=== PATIENT | female | born 1995 | race Caucasian/White ===

== ENCOUNTER 2018-10-05 19:35 | Inpatient (IN) | payer OTHER ==
[2018-10-05] MEDS ORDERED: BUTORPHANOL TARTRATE 2 MG/ML VIAL IVPUSH PRN (20:05)
--- NOTE | 2018-10-05 20:05 | HP ---
Past Medical History - Admission Chief Complaint: Labor pain History of Present Illness: 23 yo , @ 39 weeks gestation, EDC 10/11/18 sent from office for augmentation of labor. In office she was 4cm dilated. She c/o back pain and lower abdominal pain. History Source: Patient Limitations to Obtaining History: No Limitations - Past Medical History ...: 1 ...Para: 0 ...EDC by Dates: 10/11/18 - Past Surgical History Past Surgical History: Yes: None Hx Myomectomy: No Hx Transabdominal Cerclage: No - Alcohol/Substance Use Hx Alcohol Use: No History of Substance Use: reports: None Home Medications - Allergies Allergies/Adverse Reactions: Allergies Allergy/AdvReac Type Severity Reaction Status Date / Time No Known Drug Allergies Allergy Verified 09/18/18 14:38 - Home Medications Home Medications: Ambulatory Orders 19 Tablet 1 tab PO DAILY 09/18/18 Family Disease History - Family Disease History Family History: Unremarkable Review of Systems - Review of Systems Constitutional: reports: No Symptoms Eyes: reports: No Symptoms HENT: reports: No Symptoms Neck: reports: No Symptoms Cardiovascular: reports: No Symptoms Respiratory: reports: No Symptoms Gastrointestinal: reports: No Symptoms Genitourinary: reports: Pain Breasts: reports: No Symptoms Reported Musculoskeletal: reports: No Symptoms Integumentary: reports: No Symptoms Neurological: reports: No Symptoms Endocrine: reports: No Symptoms Hematology/Lymphatic: reports: No Symptoms Psychiatric: reports: No Symptoms Pain Intensity: 4 Physical Exam - Maternity Constitutional: Yes: Well Nourished Eyes: Yes: Conjunctiva Clear HENT: Yes: Atraumatic Neck: Yes: Supple Cardiovascular: Yes: Regular Rate and Rhythm Lungs: Clear to auscultation - Abdominal Exam/OB Number of Fetuses: Single Presentation: Vertex - Vaginal Exam/OB Presentation: Vertex/Position Station: -1 - Physical Exam Psychiatric: Yes: Alert, Oriented Problem List - Problems (1) 39 weeks gestation of Code(s): Z3A.39 - 39 WEEKS GESTATION OF Assessment/Plan 39 weeks gestation Early labor Admit to L&D Pitocin augmentation Analgesia as needed Anticipate
[2018-10-05] MEDS ORDERED: PROMETHAZINE HCL 25 MG/1 ML VIAL IVPB PRN (20:06)
[2018-10-05] MEDS: DEXTROSE 5%-LACTATED RINGERS 1,000 ML IV SCH (20:30)
[2018-10-05 21:23] LABS: BLOOD UREA NITROGEN 9.4 mg/dL (7-18); CALCIUM 7.9 mg/dL (8.5-10.1); CREATININE 0.8 mg/dL (0.55-1.3); POTASSIUM 4.2 mmol/L (3.5-5.1); URIC ACID 7.7 mg/dL (2.6-7.2)
[2018-10-05 21:25] LABS: BASO % 0.3 % (0-2.0); EOS % 0.4 % (0-4.5); HEMATOCRIT 33.1 % (32.4-45.2); HEMOGLOBIN 11.3 GM/dL (10.7-15.3); LYMPH % 19.2 % (8-40); MCH 30.7 pg (25.7-33.7); MCHC 34.3 g/dl (32.0-36.0); MEAN CELL VOLUME 89.4 fl (80-96); MEAN PLT VOLUME 9.2 fl (7.5-11.1); MONO % 5.9 % (3.8-10.2); NEUT % 74.2 % (42.8-82.8); PLATELET COUNT 215 K/MM3 (134-434); RDW 14.4 % (11.6-15.6); WHITE BLOOD COUNT 9.7 K/mm3 (4.0-10.0)
[2018-10-05 21:27] LABS: RETICULOCYTES 2.17 % (0.5-1.5)
[2018-10-05 21:28] LABS: SGOT/AST 14 U/L (15-37); SGPT/ALT 10 U/L (13-61)
[2018-10-05] MEDS: OXYTOCIN 30 UNITS in 0.9% NS 30 UNIT/500 ML INFUS.BAG IVPB SCH (21:30)
[2018-10-05 21:31] VITALS: BMI 28.3
[2018-10-05 21:34] LABS: INR 0.88 (0.83-1.09); PROTHROMBIN TIME (PATIENT) 10.4 SEC (9.7-13.0)
[2018-10-05] MEDS ORDERED: OXYTOCIN 30 UNITS in 0.9% NS 30 UNIT/500 ML INFUS.BAG IVPB ONE (21:34)
[2018-10-05 21:36] LABS: GAMMA GLUTAMYL TRANSPEPTIDASE 16 U/L (5-85)
[2018-10-05 22:04] LABS: PH,URINE 7.5 (5.0-8.0); URINE APPEARANCE CLOUDY; URINE BILIRUBIN NEGATIVE (NEGATIVE); URINE COLOR RED; URINE GLUCOSE (UA) NEGATIVE (NEGATIVE); URINE KETONE NEGATIVE (NEGATIVE); URINE LEUK ESTERASE 2+ (NEGATIVE); URINE NITRITE NEGATIVE (NEGATIVE); URINE PROTEIN 2+ (NEGATIVE); URINE UROBILINOGEN 0.2 mg/dL (0.2-1.0)
[2018-10-05] MEDS ORDERED: MAGNESIUM SULFATE 20GM/500ML - 20 GM/500 ML INFUS.BAG ONE (22:38)
[2018-10-05] MEDS ORDERED: MAGNESIUM 4GM/H20 - 4 GM/100 ML IVPB IVPB SCH (23:00)
[2018-10-05 23:12] LABS: URINE RBC >100 /hpf (0-4)
[2018-10-05 23:13] LABS: EPI CELLS FEW /HPF (0-5/HPF); URINE BACTERIA MOD /hpf (NEGATIVE); URINE WBC >100 /hpf (0-5)
[2018-10-05] MEDS ORDERED: BUTORPHANOL TARTRATE 2 MG/ML VIAL ONE (23:22)
[2018-10-05] MEDS ORDERED: PROMETHAZINE HCL 25 MG/1 ML VIAL ONE (23:22)
[2018-10-05] MEDS: MAGNESIUM SULFATE 20GM/500ML - 20 GM/500 ML INFUS.BAG IVPB SCH (23:30)
--- NOTE | 2018-10-05 23:31 | PN ---
Progress Note (short form) - Note Progress Note: 23 yo , @ 39 weeks gestation, EDC 10/11/18 sent from office for augmentation of labor. Patient found to have elevated blood pressure. PIH Labs reviewed. She denies any headache, blurry vision nor epigastric pain. A/P : 39 weeks gestation induced Hypertension Magnesium sulfate Pitocin augmentation Analgesia as needed Anticipate Problem List - Problems (1) 39 weeks gestation of Code(s): Z3A.39 - 39 WEEKS GESTATION OF (2) induced hypertension Code(s): O13.9 - GESTATIONAL HTN W/O SIGNIFICANT PROTEINURIA, UNSP TRIMESTER Qualifiers: Trimester: third trimester Qualified Code(s): O13.3 - Gestational [ -induced] hypertension without significant proteinuria, third trimester
[2018-10-06] MEDS ORDERED: OXYTOCIN 20 UNITS in 0.9% NS 20 UNIT/1,000 ML INFUS.BAG IV ONE (00:10)
[2018-10-06] MEDS ORDERED: BENZOCAINE 28 GM HEMORRHOIDAL OINTMENT TP PRN (01:02)
[2018-10-06] MEDS ORDERED: BISACODYL 10 MG SUPP.RECT RC PRN (01:02)
[2018-10-06] MEDS ORDERED: IBUPROFEN 600 MG TABLET (FP) PO PRN (01:02)
[2018-10-06] MEDS ORDERED: METHYLERGONOVINE MALEATE 0.2 MG/1 ML AMP IM PRN (01:02)
[2018-10-06] MEDS ORDERED: BENZOCAINE 20% 57 GM BOTTLE TP PRN (01:02)
[2018-10-06] MEDS ORDERED: ACETAMINOPHEN 325 MG TABLET (FP) PO PRN (01:02)
[2018-10-06] MEDS ORDERED: WITCH HAZEL 50% (TUCKS) 40 PAD/JAR PAD TP PRN (01:02)
--- NOTE | 2018-10-06 01:06 | PN ---
Delivery - Delivery Vaginal Delivery: Spontaneous Type of Anesthesia: Local Episiotomy/Laceration: None EBL (cc): 300 Delivery, Single - Feeding Plan Initial Plan: Elected not to breastfeed exclusively throughout hospitalization Remarks - Remarks Remarks: Normal spontaneous vaginal delivery of a live girl over intact perineum. Nose / Oropharynx suctioned @ perineum. Cord clamped and cut. Baby handed to nurse. Placenta expelled spontaneously intact. Mother in stable condition.
[2018-10-06] MEDS ORDERED: OXYTOCIN 20 UNITS in 0.9% NS 20 UNIT/1,000 ML INFUS.BAG IV SCH (01:15)
[2018-10-06] MEDS ORDERED: MAGNESIUM SULFATE 20GM/500ML - 20 GM/500 ML INFUS.BAG ONE (09:21)
[2018-10-06] MEDS: MAGNESIUM SULFATE 20GM/500ML - 20 GM/500 ML INFUS.BAG IVPB SCH (09:23)
[2018-10-06] MEDS: PRENATAL VITAMINS W/ FOLIC ACID TABLET (FP) PO SCH (09:27)
[2018-10-06] MEDS: FERROUS SO4 325 MG TABLET (FP) PO SCH ×2 (09:27→22:00)
[2018-10-06] MEDS ORDERED: MAGNESIUM SULFATE 20GM/500ML - 20 GM/500 ML INFUS.BAG IVPB SCH (10:30)
[2018-10-06] MEDS: OXYTOCIN 30 UNITS in 0.9% NS 30 UNIT/500 ML INFUS.BAG IVPB SCH (19:00)
[2018-10-06] MEDS: DEXTROSE 5%-LACTATED RINGERS 1,000 ML IV SCH (22:30)
[2018-10-07 07:21] LABS: BASO % 0.5 % (0-2.0); EOS % 1.9 % (0-4.5); HEMATOCRIT 31.4 % (32.4-45.2); HEMOGLOBIN 10.9 GM/dL (10.7-15.3); LYMPH % 22.9 % (8-40); MCHC 34.7 g/dl (32.0-36.0); MEAN CELL VOLUME 89.3 fl (80-96); MEAN PLT VOLUME 8.7 fl (7.5-11.1); MONO % 5.6 % (3.8-10.2); NEUT % 69.1 % (42.8-82.8); PLATELET COUNT 197 K/MM3 (134-434); RBC 3.51 M/mm3 (3.60-5.2); RDW 14.2 % (11.6-15.6); WHITE BLOOD COUNT 10.8 K/mm3 (4.0-10.0)
[2018-10-07] MEDS: FERROUS SO4 325 MG TABLET (FP) PO SCH ×2 (09:47→21:52)
[2018-10-07] MEDS: PRENATAL VITAMINS W/ FOLIC ACID TABLET (FP) PO SCH (09:47)
[2018-10-07] MEDS ORDERED: PNEUMOC 13-VAL CONJ-DIP CRM/PF 0.5 ML DISP.SYRIN IM ONE (10:00)
[2018-10-07] MEDS ORDERED: DIPHTH,PERTUSS(ACELL),TET 0.5 ML DISP.SYRIN IM ONE (10:00)
[2018-10-07] MEDS ORDERED: PNEUMOCOCCAL 23 VACCINE 0.5 ML VIAL IM ONE (10:00)
--- NOTE | 2018-10-07 11:25 | PN ---
Post Progress Note - Subjective Subjective: 23 yo P1 status post vaginal delivery, seen and evaluated. Doing well. Post Day: 1 Type of Delivery: Vital Signs: Vital Signs Temperature 99.3 F 10/07/18 09:40 Pulse Rate 80 10/07/18 09:40 Respiratory Rate 18 10/07/18 09:40 Blood Pressure 146/91 10/07/18 09:40 O2 Sat by Pulse Oximetry (%) 100 10/06/18 07:30 Breast Exam: Yes: Soft Uterus: Yes: Fundus Firm Abdomen/GI: Yes: Abdomen soft, Tolerating PO Lochia: Yes: Rubra Lochia, amount: Moderate Extremities: Yes: Calves non-tender Perineum: Yes: Intact Activity: Ambulating - Labs Labs: CBC WBC 10.8 K/mm3 (4.0-10.0) H 10/07/18 06:25 RBC 3.51 M/mm3 (3.60-5.2) L 10/07/18 06:25 Hgb 10.9 GM/dL (10.7-15.3) 10/07/18 06:25 Hct 31.4 % (32.4-45.2) L 10/07/18 06:25 MCV 89.3 fl (80-96) 10/07/18 06:25 MCH 31.0 pg (25.7-33.7) 10/07/18 06:25 MCHC 34.7 g/dl (32.0-36.0) 10/07/18 06:25 RDW 14.2 % (11.6-15.6) 10/07/18 06:25 Plt Count 197 K/MM3 (134-434) 10/07/18 06:25 MPV 8.7 fl (7.5-11.1) 10/07/18 06:25 Absolute Neuts (auto) 7.5 K/mm3 (1.5-8.0) 10/07/18 06:25 Neutrophils % 69.1 % (42.8-82.8) 10/07/18 06:25 Lymphocytes % 22.9 % (8-40) 10/07/18 06:25 Monocytes % 5.6 % (3.8-10.2) 10/07/18 06:25 Eosinophils % 1.9 % (0-4.5) D 10/07/18 06:25 Basophils % 0.5 % (0-2.0) 10/07/18 06:25 Nucleated RBC % 0 % (0-0) 10/07/18 06:25 Retic Count 2.17 % (0.5-1.5) H 10/05/18 20:35 Haptoglobin 117 mg/dL (34-200) 10/05/18 20:35 Problem List - Problems (1) 39 weeks gestation of Code(s): Z3A.39 - 39 WEEKS GESTATION OF (2) induced hypertension Code(s): O13.9 - GESTATIONAL HTN W/O SIGNIFICANT PROTEINURIA, UNSP TRIMESTER Qualifiers: Trimester: third trimester Qualified Code(s): O13.3 - Gestational [ -induced] hypertension without significant proteinuria, third trimester (3) Status post normal vaginal delivery Code(s): [id number] - Assessment/Plan Status post vaginal delivery Stable Continue care Continue Labetalol
[2018-10-07] MEDS ORDERED: SENNOSIDES/DOCUSATE COMBO (SENNA PLUS) TABLET (UD) PO PRN (22:00)
--- NOTE | 2018-10-08 01:31 | DS ---
Physical Exam-R[employer]ER Vital Signs: Vital Signs Temperature 99.5 F 10/07/18 21:46 Pulse Rate 96 H 10/07/18 21:46 Respiratory Rate 20 10/07/18 21:46 Blood Pressure 139/96 10/07/18 21:46 O2 Sat by Pulse Oximetry (%) 100 10/06/18 07:30 Constitutional: Yes: Well Nourished, No Distress Neck: Yes: WNL Cardiovascular: Yes: WNL Respiratory: Yes: WNL Gastrointestinal: Yes: WNL ....Post : Yes: Uterus firm, Uterus non-tender Musculoskeletal: Yes: WNL Extremities: Yes: WNL Edema: No Neurological: Yes: WNL, Alert, Oriented Labs: CBC, BMP 10/07/18 06:25 10/05/18 20:35 Delivery - Delivery Vaginal Delivery: Spontaneous Type of Anesthesia: Local Episiotomy/Laceration: None EBL (cc): 300 Delivery, Single - Stages of Labor Date 1st Stage Initiatied: 10/05/18 Time 1st Stage Initiated: 22:30 Date 2nd Stage Initiated: 10/06/18 Time 2nd Stage Initiated: 00:15 Date of Delivery: 10/06/18 Time of Delivery: 00:50 Time Placenta Delivered: 00:55 - Condition of Infant Associate Chief Nurse/Oncology Social Worker Present: No Infant Gender: Female Weight: 5 lb 13 oz Position: Right, OA Total Hours ROM (Hrs/Mins): 4hrs 25min - 1 Minute Total Score: 9 5 Minutes Total Score: 9 - [place] Feeding Plan Initial Plan: Elected not to breastfeed exclusively throughout hospitalization Discharge Summary Reason For Visit: INDUCTION OF LABOR Current Active Problems 39 weeks gestation of (Acute) induced hypertension (Acute) Status post normal vaginal delivery (Acute) Procedures: Principal: Normal Vaginal Delivery Hospital Course: unremarkable Condition: Good - Instructions Diet, Activity, Other Instructions: Physical activity Resume your normal everyday activity as tolerated no heavy lifting or exercise until seen by your surgeon. You may walk unlimited geovanni of and climb stairs. You may resume driving the car when you feel safe and comfortable behind the wheel. No sexual activity as instructed. Wound care If you have a bandage, leave it on, and keep dry for 48-72 hours. After that time discard the outer bandage. If they are tapes on the skin under the out of bandage leave them in place. They will peel off in the next 7 to 10 days. Do Not Peel them off. You may shower the day after surgery. If there are tapes present on the skin, you may shower over them. Diet There are no dietary restrictions. Eat healthy, high-fiber foods. Drink 6 to 8 glasses of liquid each day. This will assist in keeping your bowels are regular. Pain management You may take Tylenol or acetaminophen or Ibuprofen (for example, Motrin, Advil etc.) from my pain prescription medication is ordered should be taken as prescribed for moderate to severe pain. Call MD for any of the following: Severe pain not relieved by medication Fever of 101 or higher Excessive bleeding or drainage on dressing Inability to urinate Referrals: Sabine Garcia MD [Staff Physician] - Disposition: HOME - Home Medications Comprehensive Discharge Medication List: Ambulatory Orders 19 Tablet 1 tab PO DAILY 09/18/18 Ibuprofen [Motrin -] 600 mg PO QID #28 tablet 10/08/18
[2018-10-08 06:01] VITALS: BP 122/78; PULSE 77; TEMP 98.4
[2018-10-08] MEDS: FERROUS SO4 325 MG TABLET (FP) PO SCH (09:47)
[2018-10-08] MEDS: PRENATAL VITAMINS W/ FOLIC ACID TABLET (FP) PO SCH (09:47)
== END 2018-10-08 14:00 | disposition home or self-care (01) | DRG 560 ==
LOC: JLDR 19:35 → J3W 10-07 00:10
PROVIDERS: ADMIT Obstetrics & Gynecology; ATTEND Obstetrics & Gynecology
PROC: 10E0XZZ Delivery of Products of Conception, External Approach (ICD-10-PCS; principal; 2018-10-06)
DX: O80 Encounter for full-term uncomplicated delivery (principal); Z3A.39 39 weeks gestation of pregnancy; Z37.0 Single live birth
CPT/HCPCS: 36415; 59409; 71045-TC-FY; 80048; 81003; 82977; 83010; 83735; 84450; 84460; 84550; 85025; 85032; 85044; 85610; 85730; 86593; 86850; 86900; 86901; 90715; 90732; G0009

== ENCOUNTER 2019-03-10 03:27 | Emergency (ER) | payer OTHER ==
[2019-03-10] MEDS ORDERED: ACETAMINOPHEN 325 MG TABLET (FP) PO ONE (04:07)
[2019-03-10 04:14] VITALS: BMI 20.2
--- NOTE | 2019-03-10 04:23 | PDOC ---
Attending Attestation - Resident Resident Name: JarredJax - ED Attending Attestation I have performed the following: I have examined & evaluated the patient, The case was reviewed & discussed with the resident, I agree w/resident's findings & plan - HPI HPI: 03/10/19 20:14 see resident hpi - Physicial Exam PE: 03/10/19 20:14 agree with resident exam - Medical Decision Making 03/10/19 20:14 23-year-old female with cough congestion and fever Flu swabs were negative Due to significant fever and elevated heart rate chest x-ray and labs added on Signed out to dayshift pending results
[2019-03-10] MEDS ORDERED: ACETAMINOPHEN 325 MG TABLET (FP) ONE (04:35)
[2019-03-10] MEDS ORDERED: IBUPROFEN 400 MG TABLET (FP) PO ONE ×2 (04:37→05:02)
--- NOTE | 2019-03-10 04:42 | PDOC ---
History of Present Illness - General Stated Complaint: FEVER,VOMITING Time Seen by Provider: 03/10/19 04:07 - History of Present Illness Initial Comments: 03/10/19 04:36 23 yo F with no significant pmh who p/w congestion, fevers. Patient reports 4 hours of fever, congestion, sneezing, vomitting NBNB emesis, and chills, waking patient up from sleep. Endorses lightheadedness, and diffuse dull SKY, with absent neck pain, photo/phonophobia. Was in [facility] prior to symptoms. Reports recent sick contacts mother and child, with resp illness. States that she did not receive flu vaccine this year. Patient denies vision change, palpitations, cough, wheezing, orthopena, PND, leg swelling/pain, CP, SOB, urinary complaints, hematuria, BPR, abdominal pain, diarrhea, constipation, weakness, sensory changes. PMHx: as noted above ROS: as noted SHx: Denies Etoh, IVDA, tobacco use Allergies: NKDA Past History - Past Medical History Allergies/Adverse Reactions: Allergies Allergy/AdvReac Type Severity Reaction Status Date / Time No Known Drug Allergies Allergy Verified 03/10/19 04:14 Home Medications: Ambulatory Orders 19 Tablet 1 tab PO DAILY 09/18/18 Acetaminophen [Tylenol -] 500 mg PO TID PRN #15 tablet MDD 3 tab 03/10/19 Ibuprofen [Motrin -] 400 mg PO QID PRN #16 tablet MDD 4 tab 03/10/19 Asthma: No Cancer: No Cardiac Disorders: No Diabetes: No HTN: No Seizures: No Thyroid Disease: No - Psycho Social/Smoking Cessation Hx Smoking History: Never smoked Have you smoked in the past 12 months: No Hx Alcohol Use: No Drug/Substance Use Hx: No Hx Substance Use Treatment: No Review of Systems - Review of Systems Comments:: 03/10/19 04:42 GENERAL/CONSTITUTIONAL: +fever or chills. No weakness. HEAD, EYES, EARS, NOSE AND THROAT: No change in vision. No ear pain or discharge. No sore throat. CARDIOVASCULAR: No chest pain or shortness of breath RESPIRATORY: No cough, wheezing, or hemoptysis. GASTROINTESTINAL: + nausea, vomiting. no diarrhea or constipation. GENITOURINARY: No dysuria, frequency, or change in urination. MUSCULOSKELETAL: No joint or muscle swelling or pain. No neck or back pain. SKIN: No rash NEUROLOGIC: +headache. No vertigo, loss of consciousness, or change in strength/ sensation. ENDOCRINE: No increased thirst. No abnormal weight change HEMATOLOGIC/LYMPHATIC: No anemia, easy bleeding, or history of blood clots. ALLERGIC/IMMUNOLOGIC: No hives or skin allergy. *Physical Exam - Vital Signs Last Vital Signs Temp Pulse Resp BP Pulse Ox 102.5 F H 144 H 18 115/66 97 03/10/19 03:27 03/10/19 03:27 03/10/19 03:27 03/10/19 03:27 03/10/19 03:27 - Physical Exam Comments: 03/10/19 04:42 GENERAL: Awake, alert, and fully oriented, in no acute distress HEAD: No signs of trauma, normocephalic, atraumatic EYES: PERRLA, EOMI, sclera anicteric, conjunctiva clear ENT: Auricles normal inspection, hearing grossly normal, nares patent, oropharynx clear without exudates. Moist mucosa NECK: Normal ROM, supple, no lymphadenopathy, JVD, or masses LUNGS: No distress, speaks full sentences, clear to auscultation bilaterally HEART: Regular rate and rhythm, normal S1 and S2, no murmurs, rubs or gallops, peripheral pulses normal and equal bilaterally. ABDOMEN: Soft, nontender, normoactive bowel sounds. No guarding, no rebound. No masses EXTREMITIES : Normal inspection, Normal range of motion, no edema. No clubbing or cyanosis NEUROLOGICAL: Cranial nerves II through XII grossly intact. Normal speech, normal gait, no focal sensorimotor deficits SKIN: Warm, Dry, normal turgor, no rashes or lesions noted ED Treatment Course - LABORATORY CBC & Chemistry Diagram: 03/10/19 07:15 03/10/19 07:15 Medical Decision Making - Medical Decision Making 03/10/19 04:40 23 yo F with no significant pmh who p/w 4 hours of fever, congestion, sneezing, vomiting NBNB emesis, and chills, waking patient up from sleep. + multiple sick contacts. HR 144, Oral Temp 102.5, vtials otherwise wnl, AF, A&Ox3. Physical exam unremarkable. Patient likely with viral prodrome/URI. Will assess for flu. Ed Course; Tylenol, Flu 03/10/19 04:40 03/10/19 05:39 Flu: Neg 03/10/19 05:55 Symptoms improved 03/10/19 06:50 Patient pending labs and fluids. Endorsed to day team. Discharge - Discharge Information Problems reviewed: Yes Clinical Impression/Diagnosis: Viral URI Condition: Stable Disposition: HOME - Additional Discharge Information Prescriptions: Acetaminophen [Tylenol -] 500 mg PO TID PRN #15 tablet MDD 3 tab PRN Reason: Pain Ibuprofen [Motrin -] 400 mg PO QID PRN #16 tablet MDD 4 tab PRN Reason: Pain - Follow up/Referral - Patient Discharge Instructions Patient Printed Discharge Instructions: DI for Fever (Symptom) -- Adult Additional Instructions: Please return to the emergency department with any new or worsening symptoms or concerns. Please follow up with your primary care physician within 72 hours. Cotninue to take Motrin 600 mg every 6 hours, and/or Tylenol every 6 hours as needed for symptom management. - Post Discharge Activity
[2019-03-10] MEDS ORDERED: SODIUM CHLORIDE 1,000 ML IV STA ×2 (06:37→08:11)
[2019-03-10 07:29] LABS: BASO % 0.2 % (0-2.0); EOS % 0.1 % (0-4.5); HEMATOCRIT 36.9 % (32.4-45.2); HEMOGLOBIN 12.4 GM/dL (10.7-15.3); LYMPH % 4.2 % (8-40); MCH 28.4 pg (25.7-33.7); MCHC 33.7 g/dl (32.0-36.0); MEAN CELL VOLUME 84.3 fl (80-96); MONO % 6.9 % (3.8-10.2); NEUT % 88.6 % (42.8-82.8); PLATELET COUNT 271 K/MM3 (134-434); RBC 4.38 M/mm3 (3.60-5.2); RDW 13.7 % (11.6-15.6); WHITE BLOOD COUNT 18.5 K/mm3 (4.0-10.0)
[2019-03-10 07:59] LABS: ALBUMIN 4.1 g/dl (3.4-5.0); BILIRUBIN,TOTAL 0.8 mg/dL (0.2-1); BLOOD UREA NITROGEN 9.2 mg/dL (7-18); CALCIUM 9.4 mg/dL (8.5-10.1); CREATININE 0.7 mg/dL (0.55-1.3); POTASSIUM 3.9 mmol/L (3.5-5.1); TOT PROT 7.1 g/dl (6.4-8.2)
[2019-03-10 09:00] LABS: EPI CELLS 2.8 /HPF (0-5/HPF); HYALINE CASTS 0 /lpf (0-8); PH,URINE 6.5 (5.0-8.0); URINE APPEARANCE CLEAR; URINE BACTERIA 84.1 /hpf (NEGATIVE); URINE BILIRUBIN NEGATIVE (NEGATIVE); URINE COLOR YELLOW; URINE GLUCOSE (UA) NEGATIVE (NEGATIVE); URINE KETONE NEGATIVE (NEGATIVE); URINE LEUK ESTERASE TRACE (NEGATIVE); URINE NITRITE NEGATIVE (NEGATIVE); URINE PROTEIN NEGATIVE (NEGATIVE); URINE RBC 2 /hpf (0-4); URINE UROBILINOGEN 0.2 mg/dL (0.2-1.0); URINE WBC 3 /hpf (0-5)
--- NOTE | 2019-03-10 09:34 | PDOC ---
*Physical Exam - Vital Signs Last Vital Signs Temp Pulse Resp BP Pulse Ox 99.4 F 98 H 18 114/62 100 03/10/19 07:10 03/10/19 08:20 03/10/19 08:20 03/10/19 08:20 03/10/19 08:20 - Physical Exam Comments: 03/10/19 09:31 Patient endorsed to me by Dr. goldman. Patient is a well-appearing 23-year- old female who presented with 24 hours of flulike symptoms. Initial evaluation , patient was noted to be febrile and tachycardic. CBC reveals elevated leukocytosis with predominance of neutrophils. CMP is within normal limits. Urinalysis reveals no evidence of pyuria. Patient is influenza negative. Chest x-ray reveals no evidence of infiltrate or effusion. There are no meningeal signs and there is no evidence of a particular rash. Patient endorses that her child and her mother both suffered similar symptoms shortly prior to the onset of her illness. I suspect a viral syndrome at this time. Patient has received antipyretics and IV fluids with significant improvement in her overall well-being. Patient is normotensive and the tachycardia has resolved. Will discharge with outpatient follow-up for further care. ED Treatment Course - LABORATORY CBC & Chemistry Diagram: 03/10/19 07:15 03/10/19 07:15 - ADDITIONAL ORDERS Additional order review: Laboratory Results 03/10/19 03/10/19 03/10/19 08:10 08:10 07:15 Sodium 138 Potassium 3.9 Chloride 106 Carbon Dioxide 26 Anion Gap 7 L BUN 9.2 Creatinine 0.7 Est GFR (CKD-EPI)AfAm 143.54 Est GFR (CKD-EPI)NonAf 123.85 Random Glucose 126 H Calcium 9.4 Total Bilirubin 0.8 AST 11 L ALT 16 Alkaline Phosphatase 108 Total Protein 7.1 Albumin 4.1 Urine Color Yellow Urine Appearance Clear Urine pH 6.5 Ur Specific [place] 1.007 L Urine Protein Negative Urine Glucose (UA) Negative Urine Ketones Negative Urine Blood Negative Urine Nitrite Negative Urine Bilirubin Negative Urine Urobilinogen 0.2 Ur Leukocyte Esterase Trace Urine WBC (Auto) 3 Urine RBC (Auto) 2 Urine Casts (Auto) 0 U Epithel Cells (Auto) 2.8 Urine Bacteria (Auto) 84.1 Urine HCG, Qual Cancelled 03/10/19 07:00 Sodium Potassium Chloride Carbon Dioxide Anion Gap BUN Creatinine Est GFR (CKD-EPI)AfAm Est GFR (CKD-EPI)NonAf Random Glucose Calcium Total Bilirubin AST ALT Alkaline Phosphatase Total Protein Albumin Urine Color Urine Appearance Urine pH Ur Specific [place] Urine Protein Urine Glucose (UA) Urine Ketones Urine Blood Urine Nitrite Urine Bilirubin Urine Urobilinogen Ur Leukocyte Esterase Urine WBC (Auto) Urine RBC (Auto) Urine Casts (Auto) U Epithel Cells (Auto) Urine Bacteria (Auto) Urine HCG, Qual Negative 03/10/19 07:15 RBC 4.38 MCV 84.3 MCHC 33.7 RDW 13.7 MPV 8.0 Neutrophils % 88.6 H D Lymphocytes % 4.2 L D Monocytes % 6.9 Eosinophils % 0.1 D Basophils % 0.2 - RADIOLOGY Radiology Studies Ordered: Category Date Time Status CHEST PA & LAT [RAD] Stat Radiology 03/10/19 07:35 Completed - Medications Given in the ED: ED Medications Discontinued Medications Generic Name Dose Route Start Last Admin Trade Name Freq PRN Reason Stop Dose Admin Acetaminophen 650 mg 03/10/19 04:07 03/10/19 04:40 Tylenol - PO 03/10/19 04:08 650 mg ONCE ONE Administration Sodium Chloride 1,000 mls @ 1,000 mls/hr 03/10/19 06:37 03/10/19 07:15 Normal Saline - IV 03/10/19 07:36 1,000 mls/hr ASDIR STA Administration Sodium Chloride 1,000 mls @ 1,000 mls/hr 03/10/19 08:11 03/10/19 08:25 Normal Saline - IV 03/10/19 09:10 1,000 mls/hr ASDIR STA Administration Ibuprofen 400 mg 03/10/19 04:37 03/10/19 05:04 Motrin - PO 03/10/19 04:38 400 mg ONCE ONE Administration Discharge - Discharge Information Problems reviewed: Yes Clinical Impression/Diagnosis: Viral URI Condition: Stable Disposition: HOME - Additional Discharge Information Prescriptions: Acetaminophen [Tylenol -] 500 mg PO TID PRN #15 tablet MDD 3 tab PRN Reason: Pain Ibuprofen [Motrin -] 400 mg PO QID PRN #16 tablet MDD 4 tab PRN Reason: Pain - Follow up/Referral - Patient Discharge Instructions Patient Printed Discharge Instructions: DI for Fever (Symptom) -- Adult Additional Instructions: Please return to the emergency department with any new or worsening symptoms or concerns. Please follow up with your primary care physician within 72 hours. Cotninue to take Motrin 600 mg every 6 hours, and/or Tylenol every 6 hours as needed for symptom management. - Post Discharge Activity
[2019-03-10 09:51] VITALS: BP 112/60; PULSE 94; TEMP 98.2
== END 2019-03-10 09:51 | disposition home or self-care (01) ==
LOC: JER 03:27
PROC: 3E0234Z Introduction of Serum, Toxoid and Vaccine into Muscle, Percutaneous Approach (ICD-10-PCS; principal; 2019-03-10)
DX: J06.9 Acute upper respiratory infection, unspecified (principal)
CPT/HCPCS: 36415; 71046-TC-FY; 80053; 81003; 84703; 85025; 87086; 87804; 90471; 96361; 96365; 96375; 99284-25; J7030